=== PATIENT | male | born 1965 ===

== ENCOUNTER 2018-05-14 13:18 | Emergency (ER) | payer OTHER ==
[2018-05-14 13:40] VITALS: BP 137/84; PULSE 97; RESP 16; TEMP 98.6; O2SAT 98
--- NOTE | 2018-05-14 13:55 | RAD ---
PROCEDURE: Radiographs of the Right Shoulder HISTORY: shoulder pain COMPARISON: No prior. FINDINGS: BONES: Normal. No fracture. 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 . SOFT TISSUES: Normal. OTHER FINDINGS: None. IMPRESSION: No acute fractures. 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 .
--- NOTE | 2018-05-14 13:59 | C.PDOC ---
History Of Present Illness 52 y/o M p/w R shoulder pain x 1 week that began after he tried to lift something heavy. Denies direct strike injury, numbness, or motor weakness. Pain with movement of the shoulder. Denies elbow or wrist pain. Denies fever or chills. Has appointment with Ortho this upcoming week. Time Seen by Provider: 05/14/18 13:39 Chief Complaint (Nursing): Upper Extremity Problem/Injury Past Medical History Vital Signs: Last Vital Signs Temp 98.6 F 05/14/18 13:38 Pulse 97 H 05/14/18 13:38 Resp 16 05/14/18 13:38 BP 137/84 05/14/18 13:38 Pulse Ox 98 05/14/18 13:59 Family History: States: No Known Family Hx - Social History Hx Alcohol Use: No Hx Substance Use: No Review Of Systems Except As Marked, All Systems Reviewed And Found Negative. Constitutional: Negative for: Fever Respiratory: Negative for: Shortness of Breath Physical Exam - Physical Exam Additional Physical Exam Comments: Gen: NAD Head: NC/AT Eyes: PERRL ENT: MMM Neck: Supple Chest: No tenderness CV: Regular rate Lungs: CTA b/l Abd: Soft, NT Back: No CVA tenderness Skin: No rash Extremities: No swelling. R shoulder with reproducible pain above 45 degrees. No AC joint tenderness. FROM elbow and wrist. Neuro: Alert, no focal deficit ED Course And Treatment O2 Sat by Pulse Oximetry: 98 Medical Decision Making Medical Decision Making: XR negative, given copy and instructed to f/u with Ortho for further soft tissue injury evaluation. Disposition - Disposition Disposition: HOME/ ROUTINE Disposition Time: 13:58 Condition: STABLE Additional Instructions: PROCEDURE: Radiographs of the Right Shoulder HISTORY: shoulder pain COMPARISON: No prior. FINDINGS: BONES: Normal. No fracture. 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 . SOFT TISSUES: Normal. OTHER FINDINGS: None. IMPRESSION: No acute fractures. 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 Prescriptions: Famotidine [Pepcid] 1 tab PO BID #14 tab Ibuprofen [Motrin] 600 mg PO Q6 #25 tab Instructions: Shoulder Pain (DC) Forms: [facility] (Bengali), Work Excuse - Clinical Impression Clinical Impression: Shoulder pain
== END 2018-05-14 14:09 | disposition home or self-care (01) ==
LOC: C.ER 13:18
DX: M25.511 Pain in right shoulder (principal)
CPT/HCPCS: 73030; 96372; 99283; J1885